=== PATIENT | male | born 1995 | race Caucasian/White ===

== ENCOUNTER 2019-05-19 17:01 | Emergency (ER) | payer OTHER ==
[~2019-05-19] VITALS: Ht 167.6 cm; Wt 65.9 kg
[2019-05-19 17:04] VITALS: TEMP 98.9
[2019-05-19] MEDS ORDERED: NORCO 325 MG-7.1 TAB PO (17:10)
[2019-05-19] MEDS ORDERED: STOOL SOFTENER100 M2 PO (17:10)
[2019-05-19 17:21] LABS: BASO # 0.1 (0.0-0.2); BASO % 0.3 % (0.0-2.0); EOS # 0.1 (0.0-0.7); EOS % 0.5 % (0-4.0); GRAN # 11.5 (1.4-6.5); GRAN % 65.3 % (42.2-75.2); HEMOGLOBIN 11.5 g/dl (13.5-18.0); LYMPH # 4.7 (1.2-3.4); LYMPH % 26.9 % (20.0-51.0); MEAN CELL VOLUME 92 fl (80.0-100.0); MEAN CORPUSCULAR HEMOGLOBIN 32 pg (27.0-31.0); MEAN CORPUSCULAR HGB CONC 35 g/dl (33.0-37.0); MEAN PLATELET VOLUME 9.2 fl (7.4-10.4); MONO # 1.1 (0.1-0.6); MONO % 6.5 % (1.7-9.3); PLATELET COUNT 375 K/mm3 (130-400); RED BLOOD COUNT 3.57 M/mm3 (4.20-5.60); REDCELL DISTRIBUTION WIDTH-CV 12.8 % (11.5-14.5)
[2019-05-19 17:23] LABS: HEMATOCRIT 32.8 % (42.0-52.0)
[2019-05-19 17:38] LABS: ALBUMIN 4.3 gm/dL (3.5-5.0); BILIRUBIN,TOTAL 0.4 mg/dL (0.0-1.0); CALCIUM 9.4 mg/dL (8.4-10.2); CREATININE, serum 0.69 (0.66-1.25); POTASSIUM 3.2 mmol/L (3.4-5.0); PROTHROMBIN TIME 11.2 SECONDS (9.7-12.8); TOTAL PROTEIN 7.7 gm/dL (6.4-8.2)
[2019-05-19 17:41] LABS: PARTIAL THROMBOPLASTIN TIME 27.7 SECONDS (26.0-37.0)
[2019-05-19 18:45] VITALS: BP 125/94; PULSE 107
== END 2019-05-19 19:00 | disposition short-term general hospital (02) ==
LOC: COL.ER 17:01
PROVIDERS: Emergency Medicine
DX: J95.89 Other postprocedural complications and disorders of respiratory system, not elsewhere classified (principal); R04.0 Epistaxis
CPT/HCPCS: J7030

== ENCOUNTER 2019-05-26 02:50 | Inpatient (IN) | payer OTHER ==
[~2019-05-26] VITALS: Ht 167.6 cm; Wt 65.9 kg
[2019-05-26] VITALS (8 sets, daily range): BP systolic 117–134; BP diastolic 71–96; PULSE 84–99; TEMP 98.3–98.5
[~2019-05-26 02:50] MED LIST: NORCO 325 MG-7.1 TAB PO; STOOL SOFTENER100 M2 PO
[2019-05-26] MEDS ORDERED: NATURAL IRON65 MG (03:27)
[2019-05-26] MEDS ORDERED: CEPHALEXIN500 M1 PO (03:28)
[2019-05-26 03:31] LABS: BASO % 0.3 % (0.0-2.0); EOS % 0.3 % (0-4.0); GRAN # 8.9 (1.4-6.5); GRAN % 72.2 % (42.2-75.2); LYMPH # 2.5 (1.2-3.4); LYMPH % 19.9 % (20.0-51.0); MEAN CELL VOLUME 91 fl (80.0-100.0); MEAN CORPUSCULAR HGB CONC 34 g/dl (33.0-37.0); MEAN PLATELET VOLUME 8.8 fl (7.4-10.4); MONO # 0.8 (0.1-0.6); MONO % 6.7 % (1.7-9.3); PLATELET COUNT 565 K/mm3 (130-400); RED BLOOD COUNT 2.74 M/mm3 (4.20-5.60)
[2019-05-26 03:33] LABS: HEMATOCRIT 24.9 % (42.0-52.0); HEMOGLOBIN 8.5 g/dl (13.5-18.0); MEAN CORPUSCULAR HEMOGLOBIN 31 pg (27.0-31.0)
[2019-05-26 03:34] LABS: INR 1.1 (0.8-3.0); PROTHROMBIN TIME 13.4 SECONDS (9.7-12.8)
[2019-05-26 03:36] LABS: PARTIAL THROMBOPLASTIN TIME 26.6 SECONDS (26.0-37.0)
[2019-05-26 03:40] LABS: CALCIUM 8.8 mg/dL (8.4-10.2); CREATININE, serum 0.74 (0.66-1.25); POTASSIUM 3.4 mmol/L (3.4-5.0)
--- NOTE | 2019-05-26 08:45 | NUR ---
Recieved from OR via bed on RA connected to social insurance adviser. Answers questions appropriately, denies pain/nausea.
--- NOTE | 2019-05-26 10:40 | NUR ---
Plan: To return home with roommate as support at [address] [facility]. Assess: Chet reprots that he obtains all medications from [facility] on post. Patient reports that his PCP is at the [facility] hospital. Patient reports his mother Keisha Kinsey and EMR contant . Patient reports that he does not use any DME and does not have a DPOA. Patient denies any use of additional supports in home. Patient reports that he is not sure how he is getting home yet. Action: Offered additional supports-declined, will need to follow-up for additional needs. Educated on community resource. Client still a little lethargic, F/U recommeneded.
--- NOTE | 2019-05-26 12:23 | NUR ---
stopped by but nothing needed at this time.
[2019-05-26 12:49] LABS: MEAN CELL VOLUME 90 fl (80.0-100.0); MEAN CORPUSCULAR HGB CONC 34 g/dl (33.0-37.0); MEAN PLATELET VOLUME 8.6 fl (7.4-10.4); RED BLOOD COUNT 3.47 M/mm3 (4.20-5.60)
[2019-05-26 12:53] LABS: HEMATOCRIT 31.1 % (42.0-52.0); HEMOGLOBIN 10.5 g/dl (13.5-18.0); MEAN CORPUSCULAR HEMOGLOBIN 30 pg (27.0-31.0); PLATELET COUNT 445 K/mm3 (130-400)
[2019-05-26 14:13] LABS: LYMPHOCYTE 1 % (20.0-51.0); NEUTROPHILS 99 % (42.0-75.2); PLATELET ESTIMATE NORMAL (NORMAL)
== END 2019-05-26 15:19 | disposition home or self-care (01) | DRG 909 ==
LOC: COL.ER 02:50 → ICU 05:24
PROVIDERS: Emergency Medicine; ADMIT Otolaryngology
PROC: 03L Upper Arteries, Occlusion (ICD-10-PCS; principal; 2019-05-26 06:30)
DX: I97.618 Postprocedural hemorrhage of a circulatory system organ or structure following other circulatory system procedure (principal); Y83.8 Other surgical procedures as the cause of abnormal reaction of the patient, or of later complication, without mention of misadventure at the time of the procedure; R04.0 Epistaxis; I95.9 Hypotension, unspecified; R00.0 Tachycardia, unspecified; D64.9 Anemia, unspecified
CPT/HCPCS: J0330; J1100; J2370; J2405; J2704; J3010; J7030; P9016

== ENCOUNTER 2019-05-31 20:52 | Emergency (ER) | payer OTHER ==
[~2019-05-31] VITALS: Ht 167.6 cm; Wt 65.9 kg
[~2019-05-31 20:52] MED LIST changes: +CEPHALEXIN500 M1 PO; +NATURAL IRON65 MG
[2019-05-31 21:29] LABS: BASO # 0.1 (0.0-0.2); BASO % 0.4 % (0.0-2.0); EOS # 0.2 (0.0-0.7); EOS % 1.4 % (0-4.0); GRAN # 8.6 (1.4-6.5); GRAN % 64.8 % (42.2-75.2); LYMPH # 3.4 (1.2-3.4); LYMPH % 25.7 % (20.0-51.0); MEAN CELL VOLUME 89 fl (80.0-100.0); MEAN CORPUSCULAR HGB CONC 33 g/dl (33.0-37.0); MEAN PLATELET VOLUME 8.5 fl (7.4-10.4); MONO # 0.9 (0.1-0.6); MONO % 7.1 % (1.7-9.3); PLATELET COUNT 552 K/mm3 (130-400); RED BLOOD COUNT 3.25 M/mm3 (4.20-5.60); REDCELL DISTRIBUTION WIDTH-CV 13.1 % (11.5-14.5)
[2019-05-31 21:30] LABS: HEMATOCRIT 28.8 % (42.0-52.0); HEMOGLOBIN 9.6 g/dl (13.5-18.0); MEAN CORPUSCULAR HEMOGLOBIN 30 pg (27.0-31.0)
[2019-05-31 21:52] LABS: PROTHROMBIN TIME 11.6 SECONDS (9.7-12.8)
[2019-05-31 21:55] LABS: PARTIAL THROMBOPLASTIN TIME 30.1 SECONDS (26.0-37.0)
[2019-05-31 21:59] LABS: CREATININE, serum 0.72 (0.66-1.25)
[2019-05-31] MEDS ORDERED: FERROUS SU325 MG/TAB PO (22:33)
[2019-05-31] MEDS ORDERED: COLACE 100100 MG/CAP PO (22:33)
[2019-05-31 22:46] VITALS: BP 126/86; PULSE 107; TEMP 98.2
== END 2019-05-31 22:50 | disposition home or self-care (01) ==
LOC: COL.ER 20:52
PROVIDERS: Emergency Medicine
DX: R04.0 Epistaxis (principal)

== ENCOUNTER 2019-06-02 10:01 | Observation (INO) | payer OTHER ==
[~2019-06-02] VITALS: Ht 167.6 cm; Wt 65.7 kg
[~2019-06-02 10:01] MED LIST changes: +COLACE 100100 MG/CAP PO; +FERROUS SU325 MG/TAB PO
[2019-06-02 10:53] LABS: BASO # 0.1 (0.0-0.2); BASO % 0.6 % (0.0-2.0); EOS # 0.1 (0.0-0.7); EOS % 1.1 % (0-4.0); GRAN # 3.8 (1.4-6.5); GRAN % 43.1 % (42.2-75.2); LYMPH # 3.9 (1.2-3.4); LYMPH % 43.5 % (20.0-51.0); MEAN CELL VOLUME 89 fl (80.0-100.0); MEAN CORPUSCULAR HGB CONC 34 g/dl (33.0-37.0); MEAN PLATELET VOLUME 8.6 fl (7.4-10.4); MONO % 11.1 % (1.7-9.3); PLATELET COUNT 597 K/mm3 (130-400); RED BLOOD COUNT 3.13 M/mm3 (4.20-5.60); REDCELL DISTRIBUTION WIDTH-CV 13.2 % (11.5-14.5)
[2019-06-02 11:08] LABS: HEMATOCRIT 27.7 % (42.0-52.0); HEMOGLOBIN 9.3 g/dl (13.5-18.0); MEAN CORPUSCULAR HEMOGLOBIN 30 pg (27.0-31.0)
[2019-06-02 13:00] VITALS: BP 137/77; PULSE 82; TEMP 97.9
[2019-06-02 16:03] VITALS: BP 137/77; PULSE 82; TEMP 97.9
[2019-06-02 16:17] LABS: MEAN CELL VOLUME 89 fl (80.0-100.0); MEAN CORPUSCULAR HGB CONC 33 g/dl (33.0-37.0); MEAN PLATELET VOLUME 8.3 fl (7.4-10.4); RED BLOOD COUNT 2.71 M/mm3 (4.20-5.60); REDCELL DISTRIBUTION WIDTH-CV 13.2 % (11.5-14.5)
[2019-06-02 16:19] LABS: HEMATOCRIT 24.2 % (42.0-52.0); HEMOGLOBIN 7.9 g/dl (13.5-18.0); MEAN CORPUSCULAR HEMOGLOBIN 29 pg (27.0-31.0)
[2019-06-02 16:20] LABS: PLATELET COUNT 472 K/mm3 (130-400)
--- NOTE | 2019-06-02 16:23 | NUR ---
Patient admitted to the floor from ED for uncontrolled nose bleed. Patient oriented to the room and floor and initial assessment completed. Prior to admission assesment being completed, ENT was consulted and it was decided to transfer patient to [facility] where he had surgery for deviated septum last month. Therefore, remainder of admission not completed. Gauze dressing below nose changed once prior to transfer. Rhino-rocket in place. Transfer initiated through [facility]. Report given to nurse at [facility]. Patient transferred at 1615.
== END 2019-06-02 16:39 | disposition short-term general hospital (02) ==
LOC: COL.ER 10:01 → JCC 11:40
PROVIDERS: Emergency Medicine; Family Medicine; ADMIT Hospitalist
DX: R04.0 Epistaxis (principal); D64.9 Anemia, unspecified; D47.3 Essential (hemorrhagic) thrombocythemia; Z88.0 Allergy status to penicillin
CPT/HCPCS: G0378; J1170; J7030

== ENCOUNTER → 2019-08-10 | Outpatient (CLI) | payer OTHER ==
[2019-08-10 09:56] LABS: MAGNESIUM 2.2 mg/dL (1.6-2.3); PHOSPHOROUS 4.1 mg/dL (2.5-4.5); POTASSIUM 4.1 mmol/L (3.4-5.0)
== END ==
LOC: COL.LAB 08:59
DX: D50.0 Iron deficiency anemia secondary to blood loss (chronic) (principal); R25.2 Cramp and spasm

== ENCOUNTER 2019-08-14 01:52 | Emergency (ER) | payer OTHER | END 2019-08-14 09:11 | disposition home or self-care (01) | LOC: COL.ER 01:52 | DX: Z72.89 Other problems related to lifestyle (principal) ==

== ENCOUNTER 2019-11-10 09:23 | Emergency (ER) | payer OTHER ==
[~2019-11-10] VITALS: Ht 167.6 cm; Wt 65.9 kg
[2019-11-10 09:25] VITALS: BP 121/90; TEMP 97.9
[2019-11-10 10:21] VITALS: PULSE 94
== END 2019-11-10 10:22 | disposition home or self-care (01) ==
LOC: COL.ER 09:23
DX: R04.0 Epistaxis (principal); Z87.09 Personal history of other diseases of the respiratory system